=== PATIENT | female | born 1975 | race Caucasian/White ===

== ENCOUNTER 2017-10-07 00:31 | Emergency (ER) | payer BC ==
[2017-10-07 02:47] LABS: ADD MAN DIFF? NO
[2017-10-07 02:51] LABS: WHITE BLOOD COUNT 11.2 10^3/ul (4.8-10.8)
[2017-10-07 02:51] LABS: BASOPHIL # 0.1 10^3/ul (0.0-0.1); BASOPHILS % 0.5 % (0.0-2.0); EOSINOPHILS # 0.2 10^3/ul (0.0-0.5); EOSINOPHILS % 1.5 % (0.0-7.0); HEMATOCRIT 40.2 % (37.0-47.0); HEMOGLOBIN 12.9 g/dl (12.0-16.0); IMMATURE GRANS #M 0.03 10^3/ul; IMMATURE GRANS % (M) 0.3 %; LYMPHOCYTES % 26.5 % (15.0-51.0); MEAN CORPUSCULAR HEMOGLOBIN 27.7 pg (29.0-33.0); MEAN CORPUSCULAR HGB CONC 32.1 g/dl (32.0-37.0); MEAN CORPUSCULAR VOLUME 86.3 fl (82.0-101.0); MEAN PLATELET VOLUME 9.9 fl (7.4-10.4); MONOCYTE # 0.8 10^3/ul (0.3-0.9); MONOCYTES % 6.9 % (0.0-11.0); NEUTROPHIL # 7.2 10^3/ul (1.6-7.5); NEUTROPHILS % 64.3 % (39.0-77.0); PLATELET COUNT 282 10^3/UL (140-415); RED BLOOD COUNT 4.66 10^6/ul (4.20-5.40); RED CELL DISTRIBUTION WIDTH 13.4 % (11.5-14.5)
[2017-10-07 03:00] LABS: ADD UMIC YES; UR ASCORBIC ACID NEGATIVE (NEGATIVE); UR BACTERIA FEW /HPF (NONE SEEN); UR BILIRUBIN (Dip) NEGATIVE (NEGATIVE); UR BLOOD (Dip) 1+ mg/dL (NEGATIVE); UR CLARITY CLOUDY (CLEAR); UR COLOR AMBER (YELLOW); UR GLUCOSE (Dip) NEGATIVE (NEGATIVE); UR KETONES (Dip) NEGATIVE (NEGATIVE); UR LEUKOCYTE ESTERASE (Dip) 2+ Leu/ul (NEGATIVE); UR MUCUS FEW /HPF (NONE SEEN); UR NITRITE (Dip) NEGATIVE (NEGATIVE); UR RBC 19 /HPF (0-5); UR SPECIFIC GRAVITY (Dip) 1.018 (1.003-1.030); UR SQUAMOUS EPITHELIAL CELL MODERATE /HPF (FEW); UR TOTAL PROTEIN (Dip) NEGATIVE (NEGATIVE); UR UROBILINOGEN (Dip) 2+ mg/dL (NEGATIVE); UR WBC 56 /HPF (0-5)
[2017-10-07 03:18] LABS: ALANINE AMINOTRANSFERASE 10 IU/L (13-69); ALBUMIN 3.8 g/dl (3.3-4.9); ALBUMIN/GLOBULIN RATIO 1.18; ALKALINE PHOSPHATASE 67 IU/L (42-121); ANION GAP 13 (8-16); ASPARTATE AMINO TRANSFERASE 17 IU/L (15-46); BILIRUBIN,INDIRECT 0.1 mg/dl (0-1.1); BILIRUBIN,TOTAL 0.1 mg/dl (0.2-1.3); BLOOD UREA NITROGEN 14 mg/dl (7-20); CALCIUM 8.9 mg/dl (8.4-10.2); CARBON DIOXIDE 29 mmol/L (21-31); CHLORIDE 104 mmol/L (97-110); CREATININE 0.86 mg/dl (0.44-1.00); GLUCOSE 95 mg/dl (70-220); LIPASE 53 U/L (23-300); POTASSIUM 3.7 mmol/L (3.5-5.1); SODIUM 142 mmol/L (135-144)
[2017-10-07] MEDS: KETOROLAC 60 MG INJ IM (03:50)
== END 2017-10-07 03:56 | disposition home or self-care (01) ==
LOC: FTE 00:31
DX: N30.01 Acute cystitis with hematuria (principal); M79.9 Soft tissue disorder, unspecified; F17.210 Nicotine dependence, cigarettes, uncomplicated
CPT/HCPCS: 36415; 74176; 80053; 81001; 81025; 83690; 85025; 96372; 99285-25

== ENCOUNTER 2018-02-13 06:54 | Inpatient (IN) | payer BC ==
[~2018-02-13 06:54] MED LIST: ATROPINE 1 MG/10 ML SYRINGE; CLINDAMYCIN 900 MG/D5W (PMX) 50 ML IVPB; DEXAMETHASONE 4 MG/ML 1 ML INJ; FENTAnyl 50 MCG/ML VIAL; GLYCOPYRROLATE 0.4 MG INJ; LABETALOL HCL 20MG INJ; LIDOCAINE 2% (SDV) 5 ML INJ; MIDAZOLAM 1 MG/ML 2 ML INJ; NEOSTIGMINE 3 MG/3 ML SYRINGE; ONDANSETRON 4 MG INJ; PROPOFOL 20 ML; ROCURONIUM 50 MG INJ; SEVOFLURANE 15 MIN; SUCCINYLCHOLINE CHLORIDE 100 MG/5 ML SYG IV; SUGAMMADEX SODIUM 200 MG/2 ML VIAL IV
[2018-02-13] MEDS ORDERED: FENTAnyl 50 MCG/ML VIAL (07:00)
[2018-02-13] MEDS ORDERED: SOD CHLORIDE 0.9% 1,000 ML IV (07:00)
[2018-02-13] MEDS ORDERED: VANCOMYCIN 1 GM (PMX) 250 ML (07:01)
[2018-02-13] MEDS: VANCOMYCIN 1 GM 250 ML IVPB (07:15)
[2018-02-13] MEDS: BUPIVACAINE 0.5%/EPI (SDV) 30 ML INJ (09:47)
[2018-02-13] MEDS ORDERED: HYDROmorphONE 0.2 MG/ML PCA (10:16)
[2018-02-13] MEDS ORDERED: HYDROmorphONE 1 MG/5 ML IV SYRINGE IV ×2 (10:16→10:30)
[2018-02-13] MEDS ORDERED: DIPHENHYDRAMINE 50 MG INJ (10:27)
[2018-02-13] MEDS ORDERED: ALBUTEROL 0.083% (NEB) 2.5 MG/3 ML AMP HHN (10:30)
[2018-02-13] MEDS ORDERED: ONDANSETRON 4 MG INJ IV (10:30)
[2018-02-13] MEDS ORDERED: LABETALOL HCL 20MG INJ IV (10:30)
[2018-02-13] MEDS ORDERED: OXYCODONE/ACETAMINOPHEN (5/325) TAB PO (10:30)
[2018-02-13] MEDS ORDERED: KETOROLAC 30 MG INJ IV (10:30)
[2018-02-13] MEDS ORDERED: FENTAnyl 50 MCG/ML VIAL IV (10:30)
[2018-02-13] MEDS ORDERED: MEPERIDINE 25 MG INJ IV (10:30)
[2018-02-13] MEDS ORDERED: METOCLOPRAMIDE 10 MG INJ IV (10:30)
[2018-02-13] MEDS ORDERED: morphine 2 MG INJ IV (10:30)
[2018-02-13] MEDS: HYDROmorphONE 1 MG/5 ML IV SYRINGE IV ×3 (10:42→10:45)
[2018-02-13] MEDS: MIDAZOLAM 1 MG/ML 2 ML INJ IV (10:50)
[2018-02-13] MEDS: HYDROmorphONE 0.2 MG/ML PCA IV ×3 (11:03→23:28)
[2018-02-13] MEDS: DIPHENHYDRAMINE 50 MG INJ IV (12:01)
[2018-02-13] MEDS: FENTAnyl 50 MCG/ML VIAL IV (12:04)
[2018-02-13] MEDS: D5W-0.45 NACL + KCL 20 MEQ 1,000 ML IV ×3 (15:13→23:19)
[2018-02-13] MEDS ORDERED: VITAMIN A & D 5 GM OINT PACKET TOP (21:36)
[2018-02-14] MEDS: DIPHENHYDRAMINE 50 MG INJ IV ×4 (00:24→20:29)
[2018-02-14] MEDS: ONDANSETRON 4 MG INJ IV ×3 (03:43→23:03)
[2018-02-14] MEDS: PANTOPRAZOLE 40 MG INJ IV (05:10)
[2018-02-14 05:21] LABS: ADD MAN DIFF? NO
[2018-02-14 05:26] LABS: BASOPHILS % 0.1 % (0.0-2.0); HEMATOCRIT 37.2 % (37.0-47.0); HEMOGLOBIN 11.8 g/dl (12.0-16.0); LYMPHOCYTES % 12.7 % (15.0-51.0); MEAN CORPUSCULAR HEMOGLOBIN 27.9 pg (29.0-33.0); MEAN CORPUSCULAR HGB CONC 31.7 g/dl (32.0-37.0); MEAN CORPUSCULAR VOLUME 87.9 fl (82.0-101.0); MEAN PLATELET VOLUME 10.5 fl (7.4-10.4); MONOCYTES % 6.4 % (0.0-11.0); NEUTROPHIL # 12.5 10^3/ul (1.6-7.5); NEUTROPHILS % 80.3 % (39.0-77.0); PLATELET COUNT 319 10^3/UL (140-415); RED BLOOD COUNT 4.23 10^6/ul (4.20-5.40); RED CELL DISTRIBUTION WIDTH 13.7 % (11.5-14.5)
[2018-02-14 05:26] LABS: WHITE BLOOD COUNT 15.5 10^3/ul (4.8-10.8)
[2018-02-14 05:32] LABS: HEMOGLOBIN A1C 5.1 % (0-5.9)
[2018-02-14 05:52] LABS: ANION GAP 9 (5-13); BLOOD UREA NITROGEN 11 mg/dl (7-20); CALCIUM 8.8 mg/dl (8.4-10.2); CARBON DIOXIDE 26 mmol/L (21-31); CHLORIDE 105 mmol/L (97-110); CREATININE 0.72 mg/dl (0.44-1.00); Estimated GFR > 60 mL/min (>60); GLUCOSE 125 mg/dl (70-220); POTASSIUM 4.5 mmol/L (3.5-5.1); SODIUM 140 mmol/L (135-144)
[2018-02-14] MEDS: D5W-0.45 NACL + KCL 20 MEQ 1,000 ML IV ×2 (07:32→18:41)
[2018-02-14] MEDS: HYDROmorphONE 0.2 MG/ML PCA IV ×2 (08:44→18:05)
[2018-02-14] MEDS: KETOROLAC 30 MG INJ IV ×2 (17:08→23:03)
[2018-02-15] MEDS: ZOLPIDEM 5 MG TAB PO ×2 (02:10→22:30)
[2018-02-15] MEDS: DIPHENHYDRAMINE 50 MG INJ IV ×2 (02:28→10:27)
[2018-02-15] MEDS: HYDROmorphONE 0.2 MG/ML PCA IV ×2 (04:44→18:26)
[2018-02-15] MEDS: PANTOPRAZOLE 40 MG INJ IV (05:06)
[2018-02-15] MEDS: KETOROLAC 30 MG INJ IV ×4 (05:07→23:41)
[2018-02-15 05:58] LABS: ADD MAN DIFF? NO
[2018-02-15 06:09] LABS: BASOPHILS % 0.3 % (0.0-2.0); EOSINOPHILS # 0.1 10^3/ul (0.0-0.5); EOSINOPHILS % 0.8 % (0.0-7.0); HEMATOCRIT 34.9 % (37.0-47.0); HEMOGLOBIN 10.8 g/dl (12.0-16.0); LYMPHOCYTES # 3.5 10^3/ul (0.8-2.9); LYMPHOCYTES % 29.8 % (15.0-51.0); MEAN CORPUSCULAR HEMOGLOBIN 27.6 pg (29.0-33.0); MEAN CORPUSCULAR HGB CONC 30.9 g/dl (32.0-37.0); MEAN CORPUSCULAR VOLUME 89.3 fl (82.0-101.0); MEAN PLATELET VOLUME 10.7 fl (7.4-10.4); MONOCYTE # 0.7 10^3/ul (0.3-0.9); MONOCYTES % 6.1 % (0.0-11.0); NEUTROPHIL # 7.4 10^3/ul (1.6-7.5); NEUTROPHILS % 62.6 % (39.0-77.0); PLATELET COUNT 269 10^3/UL (140-415); RED BLOOD COUNT 3.91 10^6/ul (4.20-5.40); RED CELL DISTRIBUTION WIDTH 13.8 % (11.5-14.5)
[2018-02-15 06:09] LABS: WHITE BLOOD COUNT 11.8 10^3/ul (4.8-10.8)
[2018-02-15 06:51] LABS: ANION GAP 6 (5-13); BLOOD UREA NITROGEN 12 mg/dl (7-20); CALCIUM 8.5 mg/dl (8.4-10.2); CARBON DIOXIDE 28 mmol/L (21-31); CHLORIDE 105 mmol/L (97-110); CREATININE 0.89 mg/dl (0.44-1.00); Estimated GFR > 60 mL/min (>60); GLUCOSE 101 mg/dl (70-220); POTASSIUM 4.3 mmol/L (3.5-5.1); SODIUM 139 mmol/L (135-144)
[2018-02-15] MEDS: ONDANSETRON 4 MG INJ IV ×2 (11:47→17:26)
[2018-02-15] MEDS: HYDROCODONE/APAP (5/325) TAB PO (21:05)
[2018-02-15] MEDS: D5W-0.45 NACL + KCL 20 MEQ 1,000 ML IV (22:42)
[2018-02-16] MEDS: DIPHENHYDRAMINE 50 MG INJ IV (00:24)
[2018-02-16 05:30] LABS: ADD MAN DIFF? NO
[2018-02-16 05:38] LABS: BASOPHILS % 0.5 % (0.0-2.0); EOSINOPHILS # 0.2 10^3/ul (0.0-0.5); EOSINOPHILS % 2.1 % (0.0-7.0); HEMATOCRIT 33.2 % (37.0-47.0); HEMOGLOBIN 10.4 g/dl (12.0-16.0); LYMPHOCYTES # 2.7 10^3/ul (0.8-2.9); LYMPHOCYTES % 33.6 % (15.0-51.0); MEAN CORPUSCULAR HEMOGLOBIN 27.6 pg (29.0-33.0); MEAN CORPUSCULAR HGB CONC 31.3 g/dl (32.0-37.0); MEAN CORPUSCULAR VOLUME 88.1 fl (82.0-101.0); MEAN PLATELET VOLUME 10.7 fl (7.4-10.4); MONOCYTE # 0.5 10^3/ul (0.3-0.9); MONOCYTES % 6.3 % (0.0-11.0); NEUTROPHIL # 4.7 10^3/ul (1.6-7.5); NEUTROPHILS % 57.1 % (39.0-77.0); PLATELET COUNT 238 10^3/UL (140-415); RED BLOOD COUNT 3.77 10^6/ul (4.20-5.40); RED CELL DISTRIBUTION WIDTH 13.3 % (11.5-14.5)
[2018-02-16 05:38] LABS: WHITE BLOOD COUNT 8.1 10^3/ul (4.8-10.8)
[2018-02-16] MEDS: PANTOPRAZOLE 40 MG INJ IV (05:46)
[2018-02-16] MEDS: KETOROLAC 30 MG INJ IV ×2 (05:47→12:31)
[2018-02-16] MEDS: HYDROCODONE/APAP (5/325) TAB PO ×2 (08:18→14:18)
[2018-02-16] MEDS ORDERED: morphine LIQ (10 MG/5 ML) CUP PO (11:30)
[2018-02-17] MEDS ORDERED: PANTOPRAZOLE (EC) 40 MG TAB PO (06:00)
== END 2018-02-16 15:45 | disposition home or self-care (01) | DRG 572 ==
LOC: SDS 06:54 → MS1 18:01 → SDS 02-14 12:00 → REC 12:09 → SDS 10:08 → MS1 02-14 12:01 → REC 10:08 → SDS 10:08 → MS1 12:09
PROC: 0JB80ZZ Excision of Abdomen Subcutaneous Tissue and Fascia, Open Approach (ICD-10-PCS; principal; 2018-02-13 08:00)
PROC: 0PB10ZZ Excision of 1 to 2 Ribs, Open Approach (ICD-10-PCS; 2018-02-13 08:00)
DX: D17.9 Benign lipomatous neoplasm, unspecified (principal); E66.9 Obesity, unspecified; Z68.36 Body mass index [BMI] 36.0-36.9, adult; K76.0 Fatty (change of) liver, not elsewhere classified; Z87.442 Personal history of urinary calculi; F17.200 Nicotine dependence, unspecified, uncomplicated
CPT/HCPCS: 71045; 80048; 83036; 85025; 88307

== ENCOUNTER 2018-02-18 14:12 | Emergency (ER) | payer BC ==
[2018-02-18] MEDS: IBUPROFEN 600 MG TAB PO (19:03)
[2018-02-18] MEDS: OXYCODONE/ACETAMINOPHEN (5/325) TAB PO (19:04)
== END 2018-02-18 19:37 | disposition home or self-care (01) ==
LOC: E/R 14:12
DX: G89.18 Other acute postprocedural pain (principal); K59.01 Slow transit constipation; Z87.891 Personal history of nicotine dependence
CPT/HCPCS: 99283; Z7502

== ENCOUNTER 2018-11-06 08:03 | Observation (INO) | payer BC ==
[2018-11-06] MEDS: SOD CHLORIDE 0.9% 1,000 ML IV ×2 (07:00→20:20)
[2018-11-06] MEDS ORDERED: CLINDAMYCIN 900 MG (PMX) 50 ML IVPB (11:05)
[2018-11-06] MEDS ORDERED: SUCCINYLCHOLINE CHLORIDE 100 MG/5 ML SYG IV (11:05)
[2018-11-06] MEDS ORDERED: LIDOCAINE 2% (SDV) 5 ML INJ (11:05)
[2018-11-06] MEDS ORDERED: PROPOFOL 20 ML (11:05)
[2018-11-06] MEDS ORDERED: MIDAZOLAM 1 MG/ML 2 ML INJ (11:05)
[2018-11-06] MEDS ORDERED: DEXAMETHASONE 4 MG/ML 5 ML INJ (12:30)
[2018-11-06] MEDS ORDERED: METOCLOPRAMIDE 10 MG INJ (12:30)
[2018-11-06] MEDS ORDERED: ONDANSETRON 4 MG INJ (12:30)
[2018-11-06] MEDS ORDERED: FAMOTIDINE 20 MG INJ (12:31)
[2018-11-06] MEDS ORDERED: EPHEDrine 25 MG/5 ML SYG (12:38)
[2018-11-06] MEDS ORDERED: ALBUTEROL 0.083% (NEB) 2.5 MG/3 ML AMP HHN (13:00)
[2018-11-06] MEDS ORDERED: OXYCODONE/ACETAMINOPHEN (5/325) TAB PO (13:00)
[2018-11-06] MEDS ORDERED: DIPHENHYDRAMINE 50 MG INJ IV (13:00)
[2018-11-06] MEDS ORDERED: MEPERIDINE 25 MG INJ IV (13:00)
[2018-11-06] MEDS: ISOSULFAN BLUE 1% 5 ML INJ SC (13:10)
[2018-11-06] MEDS ORDERED: ACETAMINOPHEN 1000MG/100ML IV 100 ML IVPB (14:00)
[2018-11-06] MEDS ORDERED: ONDANSETRON 4 MG INJ IV (14:00)
[2018-11-06] MEDS: ONDANSETRON 4 MG INJ IV (14:16)
[2018-11-06] MEDS: HYDROmorphONE 1 MG/5 ML IV SYRINGE IV ×5 (14:16→14:43)
[2018-11-06] MEDS: OXYCODONE/ACETAMINOPHEN (5/325) TAB PO (14:36)
[2018-11-06] MEDS: D5W-0.45 NACL + KCL 20 MEQ 1,000 ML IV ×2 (16:04→21:35)
[2018-11-06] MEDS: DIPHENHYDRAMINE 25 MG CAP PO (17:41)
[2018-11-06] MEDS: morphine 2 MG INJ IV ×2 (20:42→23:24)
[2018-11-07] MEDS: HYDROmorphONE 0.5 MG/0.5 ML SYG IV ×2 (00:21→04:40)
[2018-11-07] MEDS: D5W-0.45 NACL + KCL 20 MEQ 1,000 ML IV ×2 (00:22→13:20)
[2018-11-07] MEDS: BISACODYL (EC) 5 MG TAB PO ×2 (00:26→08:35)
[2018-11-07] MEDS: DIPHENHYDRAMINE 25 MG CAP PO ×2 (00:36→10:52)
[2018-11-07 04:54] LABS: ADD MAN DIFF? NO
[2018-11-07 05:00] LABS: WHITE BLOOD COUNT 8.7 10^3/ul (4.8-10.8)
[2018-11-07 05:00] LABS: BASOPHILS % 0.2 % (0.0-2.0); HEMATOCRIT 38.2 % (37.0-47.0); HEMOGLOBIN 12.3 g/dl (12.0-16.0); LYMPHOCYTES # 0.7 10^3/ul (0.8-2.9); LYMPHOCYTES % 7.8 % (15.0-51.0); MEAN CORPUSCULAR HEMOGLOBIN 29.6 pg (29.0-33.0); MEAN CORPUSCULAR HGB CONC 32.2 g/dl (32.0-37.0); MEAN PLATELET VOLUME 10.8 fl (7.4-10.4); MONOCYTE # 0.3 10^3/ul (0.3-0.9); NEUTROPHIL # 7.7 10^3/ul (1.6-7.5); NEUTROPHILS % 88.7 % (39.0-77.0); PLATELET COUNT 241 10^3/UL (140-415); RED BLOOD COUNT 4.15 10^6/ul (4.20-5.40)
[2018-11-07] MEDS ORDERED: ALPRAZOLAM 0.25 MG TAB PO ×2 (05:00)
[2018-11-07 05:27] LABS: ANION GAP 8 (5-13); BLOOD UREA NITROGEN 10 mg/dl (7-20); CALCIUM 9.3 mg/dl (8.4-10.2); CARBON DIOXIDE 22 mmol/L (21-31); CHLORIDE 106 mmol/L (97-110); CREATININE 0.66 mg/dl (0.44-1.00); Estimated GFR > 60 mL/min (>60); GLUCOSE 152 mg/dl (70-220); POTASSIUM 4.7 mmol/L (3.5-5.1); SODIUM 136 mmol/L (135-144)
[2018-11-07 05:34] LABS: PHOSPHORUS 2.9 mg/dl (2.5-4.9)
[2018-11-07] MEDS: DOCUSATE SODIUM 100 MG CAP PO ×2 (08:31)
[2018-11-07] MEDS: HYDROCODONE/APAP (5/325) TAB PO (09:29)
[2018-11-07] MEDS: SOD CHLORIDE 0.9% 1,000 ML IV (10:43)
== END 2018-11-07 14:22 | disposition home or self-care (01) ==
LOC: SDS 08:03 → REC 14:02 → MS1 15:20
DX: C50.412 Malignant neoplasm of upper-outer quadrant of left female breast (principal); E66.9 Obesity, unspecified; Z68.34 Body mass index [BMI] 34.0-34.9, adult; F17.200 Nicotine dependence, unspecified, uncomplicated; K76.0 Fatty (change of) liver, not elsewhere classified
CPT/HCPCS: 19301; 80048; 83735; 84100; 85025; 88307; 88331